=== PATIENT | female | born 1970 | race Caucasian/White ===

== ENCOUNTER → 2024-01-24 06:38 | Day surgery (SDC) | payer BC, OTHER, SELFPAY | LOC: GI 06:38 | PROVIDERS: ATTENDING PHYSICIAN Internal Medicine; FAMILY PHYSICIAN Internal Medicine | DX: Z12.11 Encounter for screening for malignant neoplasm of colon (principal); D12.5 Benign neoplasm of sigmoid colon; K64.8 Other hemorrhoids | CPT/HCPCS: 45385; 88305 ==

== ENCOUNTER 2024-07-14 13:54 | Emergency (ER) | payer BC, SELFPAY ==
[2024-07-14 14:12] VITALS: BP 132/85
[2024-07-14] MEDS: OMNIPAQUE 50 ML PO (14:21)
[2024-07-14 14:32] LABS: % Basophils 0.8 % (0-2); % Eosinophils 3.1 % (0-6); % Immature Granulocytes 0.2 % (0-0.5); % Lymphocytes 23.8 % (20.5-51.1); % Monocytes 7.9 % (1.7-9.3); % Neutrophils 64.2 % (42.2-75.2); Absolute Basophils 0.1 10^3/uL (0-0.2); Absolute Eosinophils 0.3 10^3/uL (0-0.7); Absolute Monocytes 0.7 10^3/uL (0.1-0.6); Absolute Neutrophils 5.3 10^3/uL (1.4-6.5); Hemoglobin 12.7 g/dL (12.0-16.0); Mean Corp Hgb Conc. 34.3 g/dL (33.0-37.0); Mean Corpuscular Hgb 30.4 pg (27.0-31.0); Mean Corpuscular Volume 88.5 fL (81.0-99.0); Mean Platelet Volume 10.4 fL (7.4-10.4); Nucleated Red Blood Cells % 0 %; Platelet Count 218 10^3/uL (130-400); Red Blood Cell Count 4.18 10^6/uL (4.20-5.40); Red Cell Dist. Width 12.9 % (11.5-14.5); White Blood Cell Count 8.3 10^3/uL (4.8-10.8)
[2024-07-14 14:45] LABS: HCG, Serum Qualitative Screen Negative
[2024-07-14 14:47] LABS: ALT (SGPT) 15 U/L (0-35); AST (SGOT) 17 U/L (14-36); Albumin 4.1 g/dl (3.5-5.0); Alkaline Phosphatase 38 U/L (38-126); Blood Urea Nitrogen 17 mg/dl (7-17); Calcium 9.4 mg/dl (8.4-10.2); Carbon Dioxide 22 mmol/L (22-30); Chloride 108 mmol/L (98-107); Glucose 101 mg/dl (70-99); Potassium 4.4 mmol/L (3.5-5.1); Sodium 138 mmol/L (135-145); Total Bilirubin 1.1 mg/dl (0.2-1.3); Total Protein 6.7 g/dl (6.3-8.2); eGFR > 60.00
[2024-07-14 16:13] VITALS: BP 129/79
--- NOTE | 2024-07-14 16:18 | ED.GENMED ---
History of Present Illness
General
Chief Complaint: Abdominal Pain
Source: patient
Exam Limitations: none
Time Seen by Provider: 07/14/24 16:09
Nursing documentation reviewed up to this point in time: agreed with
History of Present Illness
History of Present Illness:
The patient is a pleasant 53 year old female presenting to the emergency department with right pelvic pain. Patient states she has had intermittent pain in her right inguinal region worse with exercise which was initially thought to be a muscular
strain. However�patient does report that over the past 3 to 4 days symptoms worsened and she noticed intermittent nausea and lack of appetite. She was seen by her primary care who ordered an outpatient groin ultrasound which showed concern for
appendicitis and was referred to the emergency department.
Patient denies any known fever. She has had no vomiting. Patient denies any diarrhea/constipation. No urinary symptoms. She does state that over the past few days pain has been progressively worsening and is now noticed at rest along with with
movement.
Patient does have history of cholecystectomy and liver resection for benign adenoma.
Past History
Past History
ED Past Medical History: None and Other (Liver disease)
ED Past Surgical History: Cholecystectomy (Gallbladder pathology at that time. This was an incidental cholecystectomy done at the time of her benign liver lesion resection. There is no reported) and Other (Resection of a benign liver lesion done at
[facility] 3 years ago)
Social History
Tobacco: Non-smoker
Alcohol: Occasional
Drug: None
Personal:
Living: with family
Family History
Family History: Cancer; Negative Diabetes, Hypertension, Early CAD or Asthma
Review of Systems
Review of Systems
Allergies reviewed?: Yes
All Other Systems: ROS reviewed and negative except as documented in HPI and ROS
Phy Exam
Physical Exam
Physical Exam:
Vitals: Mildly hypertensive, otherwise vital signs stable. Afebrile
General: Patient is well appearing, no acute distress. Nontoxic appearing
Skin: Warm and dry, no rashes or lesions
Head: Normocephalic, atraumatic
Eyes: Sclera nonicteric. EOMs intact. No nystagmus.
Throat: Protecting airway
Neck: Normal ROM, no cervical spine tenderness, no meningismus
Cardiac: Regular rate and rhythm, no murmurs.
Pulm: Normal respiratory effort, no wheezes, rales, rhonchi heard on exam.
Abdomen: Abdomen soft. Mild right pelvic tenderness without rebound tenderness or guarding. No point tenderness McBurney's point. No palpable mass or bulge.
Extremities: No evidence of cyanosis or edema. Palpable DP pulses bilaterally
Neuro: AAOx3. Grossly intact.
Psychiatric: Normal affect.
Course
Orders/Labs/Results
Orders:
Orders
07/14/24 14:16
Test Result ONCE
07/14/24 14:18
Iohexol [Omnipaque] 50 ml .ROUTE .[facility]
07/14/24 14:21
Complete Blood Count/With Diff Urgent
Comprehensive Metabolic Panel Urgent
HCG, Serum Qualitative Screen Urgent
Iohexol [Omnipaque] See Protocol PO NOW STA
07/14/24 14:24
CT Abd/pel W Iv And Oral Contr Urgent
Comment:
Reason For Exam: RLQ pain, appy on outpatient US
Iohexol [Omnipaque] See Protocol PO NOW STA
07/14/24 17:51
Ketorolac [Toradol] 15 mg IV NOW STA
US Pelvis Only (non-obstetric) Urgent
Comment:
Reason For Exam: right pelvic pain
07/14/24 19:06
Urinalysis Reflex To Culture Urgent
Date Specimen was Collected: 07/14/24
Time Specimen was Collected: 19:05
Urine Microscopic Reflex Cult Urgent
Abnormal Lab Results
07/14/24 07/14/24
14:21 19:06
RBC 4.18 L 10^6/uL
(4.20-5.40)
Absolute Monos (auto) 0.7 H 10^3/uL
(0.1-0.6)
Chloride 108 H mmol/L
(98-107)
Glucose 101 H mg/dl
(70-99)
Urine Ketones 3+ A
(Negative)
Urine Bacteria (Reflex) Few A
(Negative)
Urine Albumin (Reflex) 2+ A
(Neg - Trace)
07/14/24 14:21
07/14/24 14:21
Vital Signs
Initial and Last Documented VS:
Initial Vital Signs
Temp Pulse Resp BP Pulse Ox
98.5 F 92 18 132/85 97
07/14/24 14:12 07/14/24 14:12 07/14/24 14:12 07/14/24 14:12 07/14/24 14:12
Last Documented Vital Signs
Temp Pulse Resp BP Pulse Ox
98.5 F 71 16 131/78 99
07/14/24 14:12 07/14/24 20:06 07/14/24 20:06 07/14/24 20:06 07/14/24 20:06
MDM/Problems Addressed
Differential Diagnosis Includes:
Not limited to: Appendicitis, muscular strain, inguinal hernia, ovarian cyst, ovarian torsion, etc.
MDM/Problems Addressed:
53-year-old female presenting with progressively worsening right pelvic pain associated with nausea and concern for appendicitis noticed on groin ultrasound outpatient. No associated fever, vomiting. Vital signs and physical exam as above.
Patient well-appearing, nontoxic appearing. Patient has mild tenderness in right pelvic region although no point tenderness at McBurney's point. Abdomen is soft throughout. Cardio/pulmonary assessment unremarkable. Screening labs were sent in
triage without any clinically significant abnormalities. There is no leukocytosis. I did review groin ultrasound performed outpatient which showed a noncompressible appendix. There is no free fluid noted. Currently�on exam patient's tenderness is
more reproducible in pelvic region rather than true abdominal tenderness. Lower suspicion for acute appendicitis. However�given concern on ultrasound�will obtain CT imaging for further evaluation. Plan for pelvic ultrasound if CT without acute
findings. Will check urinalysis. Patient declines analgesia at this time
Update: CT report reviewed. No evidence of acute appendicitis. There is an enlarged uterine fibroid noted. This may be contributing patient symptoms. However�will obtain pelvic ultrasound to rule out other ovarian etiology or torsion.
Urinalysis showed no evidence of infection or red blood cells. Will give Toradol.
Update: On reassessment�pain did improve following Toradol. Pelvic ultrasound shows fibroid as noted on CAT scan without any other acute abnormalities. Normal blood flow noted to both ovaries. Feel fibroid likely contributing to patient's pelvic
pain. However�patient is having no difficulties urinating or having bowel movements. No evidence of accompanying infection. She remains very well and comfortable appearing. Did discuss importance of very close follow-up with [employer] [facility] outpatient as
this may require further imaging/management. She will contact them tomorrow. Patient was given reports from both CT scan and ultrasound. Close return precautions discussed. Patient stable for discharge home.
Chronic conditions affecting care:
N/A
Acute Exacerbation and/or Progression of Chronic Illness:
N/A
*Radiology
Radiology exam reviewed: radiology read reviewed
*Pulse Oximetry
Patient hypoxic: no
*EKG
Interpreted by ED Provider?: NA
*Rehabilitation Tech Interpretation
Rate: Rehabilitation Tech- N/A
*Critical Care Note
Total Time (30-74mins, 75-104mins- exclusive of procedures): Not Applicable
ED Attending Note
-
Portions of this chart may have been created with voice recognition software.� Occasional wrong word or��sound alike� substitutions may have occurred due to the inherent limitations of voice recognition software.
Discharge Plan
Departure
Patient Disposition: Home (Routine Discharge)
Date of Disposition: 07/14/24
Time of Disposition: 19:56
Patient with high blood pressure during this ER visit?: Yes
Condition: Good
Covid-19: Not Applicable
Discharge Problem:
Pelvic pain
Instructions: Uterine Fibroids (DC), Pelvic Pain ED, Abdominal Pain, BLOOD PRESSURE
Prescriptions:
No Action
Sertraline
Patient Comments:
states she takes for a few days and couple weeks before her period
Referrals:
[facility], [Family Provider] -
Activity Restrictions/Additional Instructions:
Return to the emergency department with any high fevers, severe abdominal pain, intractable nausea/vomiting, persistent lack of appetite, inability to urinate or have bowel movements, worsening of current symptoms, or any other concerns
-As discussed�your lab work was normal. Your CT scan showed no evidence of appendicitis. A large uterine fibroid was noted on both the CT scan and pelvic ultrasound.
-You will need to follow closely with [employer] [facility] regarding large fibroid. This may require further imaging/management. If you are unable to have bowel movements/pass urine please return to the emergency department.
-Stay well-hydrated. Take Motrin/Tylenol as needed for pain.
Monitor your symptoms closely and return to the emergency department with any acute worsening/new symptoms or any other concerns
Interventions
Interventions:
*Risk Screen - Suicide Last Done: 07/14/24 14:12
*General Assessment Last Done: 07/14/24 14:12
*Neglect/Abuse Screening Last Done: 07/14/24 16:07
*ED- Fall Risk Assessment Last Done: 07/14/24 16:07
*ED COVID-19 Vaccine History Last Done: 07/14/24 16:07
*Nursing Disposition Last Done: 07/14/24 20:16
DN-Ipptho-Gfkrnhcuzs Assessment Last Done: 07/14/24 16:07
Discharge Date and Time
Discharge Date/Time: 07/14/24 20:16
Print Language: SWISS
[2024-07-14] MEDS: TORADOL 15 MG IV (17:57)
[2024-07-14 18:05] VITALS: BP 121/87
[2024-07-14 19:20] LABS: Urine Albumin 2+ (Neg - Trace); Urine Bilirubin Negative (Negative); Urine Character Clear (Clear); Urine Color Yellow; Urine Glucose Negative (Negative); Urine Ketone 3+ (Negative); Urine Leukocyte Negative (Negative); Urine Nitrite Negative (Negative); Urine Occult Blood Negative (Negative); Urine Urobilinogen Negative (Neg - 1+)
[2024-07-14 19:36] LABS: Urine Bacteria Few (Negative); Urine Red Blood Cell 0-2 /HPF (0-2); Urine White Cell 0-2 /HPF (0-5)
[2024-07-14 20:06] VITALS: BP 131/78
== END 2024-07-14 20:16 | disposition home or self-care (01) ==
LOC: EMR 13:54
PROVIDERS: Physician Assistant; EMERGENCY PHYSICIAN Emergency Medicine; FAMILY PHYSICIAN Internal Medicine
DX: R10.2 Pelvic and perineal pain (principal); R11.0 Nausea; R63.0 Anorexia; R03.0 Elevated blood-pressure reading, without diagnosis of hypertension; D25.9 Leiomyoma of uterus, unspecified; J45.909 Unspecified asthma, uncomplicated; Z90.49 Acquired absence of other specified parts of digestive tract; Z88.8 Allergy status to other drugs, medicaments and biological substances
CPT/HCPCS: 99284; 96374; 74177; 76856; 76882; 80053; 81003; 81015; 84703; 85025; Q9967